=== PATIENT | male | born 1975 | race Caucasian/White ===

== ENCOUNTER → 2017-04-11 | Outpatient (CLI) | payer SELFPAY ==
--- NOTE | 2017-04-11 15:59 | CT ---
EXAM DESCRIPTION: Abdoment/Pelvis w/o Contrast CLINICAL HISTORY: UNSPECIFIED ABDOMINAL PAIN COMPARISON: None Available TECHNIQUE: CT of the abdomen and Pelvis was performed without IV contrast. This exam was performed according to our departmental dose-optimization program, which includes automated exposure control, adjustment of the mA and/or kV according to patient size and/or use of iterative reconstruction technique. FINDINGS: There is a 3 mm noncalcified nodule in the right lung base (series 2 image 4). There is a questionable smaller nodule in the lingular segment of the left upper lobe, although this could also represent a vascular branch point. No pneumoperitoneum, adenopathy or ascites. No calcified gallstone. The liver, spleen, pancreas, adrenals and kidneys are unremarkable for noncontrast technique. No dilated small bowel loops or mesenteric inflammation. No bladder wall thickening. No colonic wall thickening or pericolonic inflammation. The appendix is normal. A right-sided hydrocele is only partially visualized. No inguinal or other abdominal wall hernia is seen. No concerning bone lesion. IMPRESSION: Right-sided hydrocele only partially visualized, but no additional abnormality in the abdomen or pelvis to explain patient symptoms. Tiny noncalcified right lung nodule with a questionable additional tiny nodule in the left lung base versus vascular branch point. Per updated Fleischner Society recommendations, follow-up CT in one year should be considered. Electronically signed by: Ángel Esquivel MD 04/11/2017 3:57 PM [employer]FORM[employer] INS[employer]OR
== END | disposition home or self-care (01) ==
LOC: CT 14:56
PROVIDERS: ATTEND Nurse Practitioner Family
DX: R10.9 Unspecified abdominal pain (principal)

== ENCOUNTER → 2017-05-17 | Outpatient (CLI) | payer OTHER ==
--- NOTE | 2017-05-18 04:42 | US ---
EXAM DESCRIPTION: Testicular CLINICAL HISTORY: 41 years, Male, RIGHT HYDROCELE COMPARISON: None. TECHNIQUE: Grayscale, waveform, and color Doppler ultrasound images were obtained of the testes. FINDINGS: Right Testicle: Measures 3.9 x 2.6 x 3.0 cm. No mass. Normal Doppler flow. Right Epididymis: The epididymal head measures 7 mm in size. Left Testicle: The left testicle is small and hypoechoic measuring 1.4 x 0.8 x 0.5 cm. A small calcification is seen within the left testicle. Left Epididymis: Not visualized. Large right hydrocele. Small left varicocele. IMPRESSION: Small hypoechoic left testicle with calcification. Unremarkable right testicle. Large right hydrocele. Electronically signed by: Tato Sullivan MD 05/18/2017 4:41 AM NURSING HOME AIDE
== END | disposition home or self-care (01) ==
LOC: US 14:12
PROVIDERS: ATTEND Urology
DX: N43.3 Hydrocele, unspecified (principal); N45.1 Epididymitis